=== PATIENT | female | born 1950 | race Caucasian/White ===

== ENCOUNTER 2018-04-03 19:19 | Emergency (ER) | payer SELFPAY ==
[~2018-04-03] VITALS: Ht 160 cm; Wt 62.1 kg
[2018-04-03 20:22] LABS: BASOPHILS % (AUTO) 0.6 % (0.0-2.0); EOSINOPHILS % (AUTO) 0.5 % (0.0-6.0); HEMATOCRIT 37 % (33-45); HEMOGLOBIN 12.1 g/dL (11.5-14.8); LYMPHOCYTES # (AUTO) 0.9 /CMM (0.8-4.8); LYMPHOCYTES % (AUTO) 18.1 % (20.0-44.0); MEAN CORPUSCULAR HGB CONC 33 g/dl (31.0-36.0); MEAN CORPUSCULAR VOLUME 86 fL (82-100); MONOCYTES # (AUTO) 0.4 /CMM (0.1-1.30); MONOCYTES % (AUTO) 8.3 % (2.0-12.0); NEUTROPHILS # (AUTO) 3.4 /CMM (1.8-8.9); NEUTROPHILS % (AUTO) 72.5 % (43.0-81.0); PLATELET COUNT (AUTO) 252 /CMM (150-450); RED BLOOD CELL COUNT(AUTO) 4.28 MIL/uL (4.0-5.2); WHITE BLOOD COUNT (AUTO) 4.7 K/uL (4.3-11.0)
[2018-04-03 20:30] LABS: CALCIUM, SERUM 8.6 mg/dL (8.5-10.1); CARBON DIOXIDE 26 mmol/L (21-32); CHLORIDE 103 mmol/L (98-107); CREATININE 0.7 mg/dL (0.6-1.3); GLUCOSE 97 mg/dL (74-106); POTASSIUM 3.2 mmol/L (3.5-5.1); SODIUM SERUM 135 mmol/L (136-145); UREA NITROGEN, BLOOD 15 mg/dL (7-18)
[2018-04-03 20:35] LABS: ALANINE AMINOTRANSFERASE 37 U/L (12-78); ALBUMIN 2.9 g/dL (3.4-5.0); ALCOHOL, BLOOD < 3 mg/dL (0-0); ALKALINE PHOSPHATASE 94 U/L (46-116); ASPARTATE AMINOTRANSFERASE 26 U/L (15-37); BILIRUBIN,DIRECT 0.2 mg/dL (0.0-0.2); BILIRUBIN,TOTAL 0.8 mg/dL (0.2-1.0); TOTAL PROTEIN, SERUM 6.6 g/dL (6.4-8.2)
--- NOTE | 2018-04-03 22:00 | NUR ---
CALLED THE NURSING [employer] TENDER RE: PT NEEDING A TAP CARD UPON DISCHARGE. PT'S SITUATION OF SAYING THAT SHE HAS A PLACE TO LIVE, BUT UPON FURTHER DISCUSSION PT STATES THAT SHE PROBABLY CAN NOT GET IN THERE/GO BACK THERE NOW. PT WILL WAIT IN THE LOBBY FOR THE MORNING AND USE THE TAP CARD TO GO TO HER CORRECTION/HOME. PT HAS A LIST OF RESOURCES, SHELTERS, CLINICS, ETC.
--- NOTE | 2018-04-03 22:10 | NUR ---
ASSISTED PT'S NURSE, UMER LUKE WITH DISCHARGE.
--- NOTE | 2018-04-03 22:15 | NUR ---
PT DENIES BEING HOMELESS, BUT APPEARS TO BE. AFTER SPEAKING TO THE PT, PT ADMITTED THAT SHE WAS HOMELESS. PT REC'D A TAP CARD AND WILL F/U WITH THE LIST OF RESOURCES/SHELTERS GIVEN TO HER. PT DOES NOT WANT TO WAIT FOR LEGAL SERVICES PROFESSIONAL. PT STATED THAT SHE WILL WAIT IN THE LOBBY UNTIL VIDEOTAPE RECORDING ENGINEER WHEN IT IS LIGHT OUTSIDE. PT REC'D A SANDWICH AND JUICE. PT HAS CLOTHING WITH HER. PT REC'D A WARM BLANKET WHILE SHE WAITS IN THE LOBBY.
--- NOTE | 2018-04-03 22:16 | NUR ---
PT'S ID BAND WAS REMOVED.
[2018-04-03 22:17] VITALS: BP 147/85
== END 2018-04-03 22:31 | disposition home or self-care (01) ==
LOC: ER 19:23
DX: K62.89 Other specified diseases of anus and rectum (principal); R45.1 Restlessness and agitation
CPT/HCPCS: 36415; 80048-TC; 80076-TC; 85025-TC; G0480

== ENCOUNTER 2018-10-25 10:28 | Emergency (ER) | payer MEDICARE ==
[~2018-10-25] VITALS: Ht 160 cm; Wt 59.9 kg
--- NOTE | 2018-10-25 10:34 | NUR ---
PT BIBRA 89 C/O RECTAL PAIN, +BRIGHT RED ON STOOL, HX:HEMORRHOIDS. PT IS AAOX3, NOT IN RESPIRATORY DISTRESS, HOOKED TO MONITOR, KEPT RESTED AND COMFORTABLE, WILL CONTINUE TO MONITOR.
--- NOTE | 2018-10-25 10:38 | NUR ---
SEEN AND EXAMINED BY .
--- NOTE | 2018-10-25 10:48 | NUR ---
ER PHLEB AT BEDSIDE FOR BLOOD DRAW.
[2018-10-25 10:59] LABS: BASOPHILS % (AUTO) 0.5 % (0.0-2.0); EOSINOPHILS % (AUTO) 0.4 % (0.0-6.0); HEMATOCRIT 37 % (33-45); HEMOGLOBIN 12.3 g/dL (11.5-14.8); LYMPHOCYTES # (AUTO) 0.5 /CMM (0.8-4.8); MEAN CORPUSCULAR HGB CONC 33 g/dl (31.0-36.0); MEAN CORPUSCULAR VOLUME 88 fL (82-100); MONOCYTES # (AUTO) 0.4 /CMM (0.1-1.30); MONOCYTES % (AUTO) 6.8 % (2.0-12.0); NEUTROPHILS # (AUTO) 4.2 /CMM (1.8-8.9); NEUTROPHILS % (AUTO) 82.3 % (43.0-81.0); PLATELET COUNT (AUTO) 226 /CMM (150-450); RED BLOOD CELL COUNT(AUTO) 4.21 MIL/uL (4.0-5.2); WHITE BLOOD COUNT (AUTO) 5.2 K/uL (4.3-11.0)
[2018-10-25 11:09] LABS: CALCIUM, SERUM 8.2 mg/dL (8.5-10.1); CARBON DIOXIDE 25 mmol/L (21-32); CHLORIDE 104 mmol/L (98-107); CREATININE 0.7 mg/dL (0.6-1.3); GLUCOSE 93 mg/dL (74-106); POTASSIUM 3.8 mmol/L (3.5-5.1); SODIUM SERUM 140 mmol/L (136-145); UREA NITROGEN, BLOOD 14 mg/dL (7-18)
[2018-10-25 11:11] LABS: ALANINE AMINOTRANSFERASE 26 U/L (12-78); ALBUMIN 2.9 g/dL (3.4-5.0); ALCOHOL, BLOOD < 3 mg/dL (0-0); ALKALINE PHOSPHATASE 83 U/L (46-116); ASPARTATE AMINOTRANSFERASE 17 U/L (15-37); BILIRUBIN,DIRECT 0.2 mg/dL (0.0-0.2); BILIRUBIN,TOTAL 0.9 mg/dL (0.2-1.0); TOTAL PROTEIN, SERUM 6.3 g/dL (6.4-8.2)
--- NOTE | 2018-10-25 12:00 | NUR ---
[facility] (OUTPATIENT) ANUP [phone] X [phone] RESIDES NEAR THE FACILITY
[2018-10-25 12:32] LABS: APPEARANCE,URINE TURBID (CLEAR); BILIRUBIN,URINE NEGATIVE (NEGATIVE); BLOOD, URINE 2+ Ery/uL (NEGATIVE); COLOR,URINE YELLOW (YELLOW); KETONES,URINE 1+ (NEGATIVE); LEUKOCYTE ESTERASE ,URINE TRACE (NEGATIVE); NITRITE, URINE NEGATIVE (NEGATIVE); PH,URINE 5.5 (5.0-8.0); PROTEIN,URINE NEGATIVE (NEGATIVE); UGLUCOSE NEGATIVE (NEGATIVE); UROBILINOGEN,URINE 0.2 EU/dL (0.2)
[2018-10-25 13:29] LABS: BACTERIA,URINE None seen /HPF (None Seen); SQUAMOUS EPITHELIAL CELL,UR Few /HPF (None Seen)
--- NOTE | 2018-10-25 13:50 | NUR ---
CALLED YANIV ([facility] [employer] ) FOR EVAL
--- NOTE | 2018-10-25 14:50 | NUR ---
YANIV RN AT BEDSIDE FOR PSYCH EVAL.
--- NOTE | 2018-10-25 15:53 | NUR ---
Patient discharged to home in stable condition. Written and verbal after care instructions given. Patient verbalizes understanding of instruction.
[2018-10-25 15:54] VITALS: BP 121/71
== END 2018-10-25 15:54 | disposition home or self-care (01) ==
LOC: ER 10:32
DX: F29 Unspecified psychosis not due to a substance or known physiological condition (principal); Z59.0 Homelessness
CPT/HCPCS: 36415; 80048; 80076; 80305; 80307; 80329; 81001; 85025; 99284; G0480; 81000-TC